=== PATIENT | female | born 1945 | race Caucasian/White ===

== ENCOUNTER → 2016-09-10 | Outpatient (CLI) | payer OTHER, MEDICARE ==
[~2016-09-10] MED LIST: ALREX10 ML OP; ASPIR 8181 MG PO; BUTALB-APAP-CA1 EACH PO; COMPRO25 MG RC; CYCLOBENZAPRINE5 MG PO; DILAUDID 2 MG TA2 MG PO; FAMCICLOVIR500 MG PO; HYDROCODONE-APA1 TA1 PO; INDAPAMIDE2.5 MG PO; MUPIROCIN15 GM TP; NORCO 5-325 TA1 EACH PO; NORTRIPTYLINE H10 M1 PO; NORVASC5 MG PO; PRILOSEC20 MG PO; PROTONIX40 M1 PO; RESTORIL30 MG PO; ROBAXIN 750 MG750 M1 PO; SENOKOT-S1 TA1 PO; TRAMADOL 50 MG50 MG PO; TRIGLIDE160 M1 PO; TYLENOL325 MG PO; XANAX1 MG PO; ZOCOR40 MG PO
== END ==
LOC: NUC 09-04 08:08
DX: G90.511 Complex regional pain syndrome I of right upper limb (principal); R60.9 Edema, unspecified; M25.531 Pain in right wrist; W19.XXXA Unspecified fall, initial encounter; Y93.89 Activity, other specified; Y92.89 Other specified places as the place of occurrence of the external cause; Y99.8 Other external cause status

== ENCOUNTER 2017-07-01 06:38 | Inpatient (IN) | payer OTHER, MEDICARE ==
[~2017-07-01] VITALS: Ht 165.1 cm; Wt 53.4 kg
--- NOTE | ~2017-07-01 | HC ---
[facility] [place] [address] CONSULTATION Name: SHAWN SHAFFER Room #: 214-P [facility] IN M.R.#: [id number] Admission: 07/01/17 Attend Phys: Efe Hoff DO Discharge: 07/15/17 Date of : 47 Report #: [id number] THIS REPORT FOR: //name// CC: Efe Clark DATE OF SERVICE: 07/12/2017 HISTORY OF PRESENT ILLNESS: This is a 72-year-old white female with history of ulcerative colitis, irritable bowel syndrome, admitted with nausea, vomiting, abdominal pain, and rectal bleeding. She had a colonoscopy, which showed severely ulcerated mucosa in left colon. She also had a mesenteric angiogram, which showed AQUILES dissection, but good flow. She has a left lower quadrant discomfort. Gastroenterology is following along with General Surgery from a conservative measure at this point. She has generalized weakness and debilitation and we are seeing her in rehabilitation medicine consultation. PAST MEDICAL HISTORY: Includes coronary artery disease, hypertension, bypass surgery in 1999, bilateral knee replacement, breast implants in the 1969's and 1997, lumbar spinal stenosis, degenerative arthritis, chronic depression, irritable bowel syndrome, TMJ syndrome, GERD, and cervical spondylosis. MEDICATIONS: Please see the full medication listing. HABITS: No history of tobacco or alcohol abuse. ALLERGIES: PENICILLIN. SOCIAL HISTORY: House, spouse, second floor apartment, full flight of steps up. She did not utilize gait aids, although she did have a cane. apparently has dementia. REVIEW OF SYSTEMS: Did not offer any current complaints of chest pain or shortness of breath. She does have the left lower quadrant abdominal discomfort. PHYSICAL EXAMINATION: GENERAL: A 72-year-old slender white female in no obvious distress. VITAL SIGNS: Last recorded temperature 98.1, pulse 95, respirations 20, blood pressure 106/56. NEUROLOGIC: The patient is alert. She is a little verbose and rather tangential. Facies are symmetric. Well-healed incision over her anterior chest as well as bilateral knees. EXTREMITIES: Functional range of motion of the upper extremity, strength is grade 4-/5 and DTRs are trace to 1. She does have an indwelling Lundberg catheter. Lower extremities, no focal calf swelling, functional range of motion strength [address] [address] CONSULTATION Name: SHAWN SHAFFER Room #: 214-P [facility] IN .R.#: [id number] Admission: 07/01/17 Attend Phys: Efe Hoff DO Discharge: 07/15/17 Date of : 47 Report #: [id number] is a grade 4 to 4-/5 and DTRs are trace to 1. Sit to stand is contact guard, gait 112 feet contact guard with a front-wheeled walker. She does have a lot of steps as noted above. I do not see that she has attempted steps yet. She does have limited tolerance for ambulation. ASSESSMENT: A 72-year-old white female with the following problems: 1. Medical complexity with generalized debilitation. 2. Colitis/gastroenteritis. 3. Irritable bowel syndrome with ulcerative colitis. 4. Severe ulcerated mucosa noted at the left colon per colonoscopy. 5. 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 6. Coronary artery disease. 7. Asthma. 8. Depression and anxiety. 9. Gastroesophageal reflux disease. PLAN: We are assessing the patient for a short acute in-hospital inpatient rehabilitation stay. At this point, we will be follow along with you. <ELECTRONICALLY SIGNED> By: Cory Simental MD 07/16/17 1108 [id number] Cory Simental MD /PMT
--- NOTE | ~2017-07-01 | P ---
[facility] [place] [address] PROCEDURE REPORT Name: SHAWN SHAFFER Room #: 214-P ADM IN M.R.#: [id number] Admission: 07/01/17 Attend Phys: Efe Hoff DO Discharge: Date of : 47 Report #: [id number] THIS REPORT FOR: //name// CC: Efe Hoff DO Boone Clark MD DATE OF SERVICE: 07/07/2017 PROCEDURE: Colonoscopy with biopsies. PATIENT OF: Dr. Efe Hoff and Dr. Boone Clark. INDICATION FOR PROCEDURE: The patient has a history of abdominal pain, fever, and elevated white count. 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 This was minor apparently and should heal on its own. The patient nonetheless has had ongoing abdominal pain, fever and high white count since a week ago when I first saw her and is feeling poorly despite being on the antibiotics and appropriate medical treatment. Colonoscopy is being performed today to evaluate for the etiology of all of these symptoms. Informed consent for this procedure was obtained prior to the administration of any medication. The risks of the procedure, which include bleeding, perforation, infection, complications of sedation and the possibility I could miss something have been explained to the patient. She has indicated her consent by signing. Digital rectal exam was done and no abnormalities were palpated. Then, the Fujinon colonoscope was introduced through the anal sphincter and advanced under direct visualization to the terminal ileum. Findings are noted on withdrawal of the scope. In the terminal ileum, mucosa appears normal. Biopsies were obtained times 2 for histopathology to exclude microscopic Crohn's disease. In the cecum, there was a single 3-mm polyp removed in toto with regular biopsy forceps and sent to pathology lab. Good hemostasis noted after that polypectomy. The remaining cecal mucosa appears normal. Ascending colon, normal mucosa. Hepatic flexure, normal mucosa. Transverse colon, normal mucosa. Splenic flexure, at 60 cm at the splenic flexure, there is the beginning of what appears to be a severely ulcerated and edematous mucosa, this extends from [address] down to 30 cm in the sigmoid colon. Biopsies were obtained from the splenic flexure times 2, descending colon times 2 and sigmoid colon times 4 of these ulcerated areas. I did also biopsy an area of colitis at 20 cm times 2 for histopathology. Good hemostasis was noted after all of those biopsies. In the rectum, there were two small polyps, 3 mm in [address] [address] PROCEDURE REPORT Name: SHAWN SHAFFER Room #: 214-P [facility] IN M.R.#: [id number] Admission: 07/01/17 Attend Phys: Efe Hoff DO Discharge: Date of : 47 Report #: [id number] size, removed in toto with regular biopsy forceps and sent to pathology lab. Good hemostasis was noted after all biopsies. Retroflex view in the rectum did not reveal any abnormalities. Scope was slowly withdrawn through the anal canal. No other abnormalities were seen. Scope was withdrawn. The patient went to the recovery area in stable condition. She tolerated the procedure well. IMPRESSION: 1. Colon polyps removed from the cecum and the rectum as above. 2. She does have an uncomplicated sigmoid diverticulum. 3. Severely ulcerated mucosa extending from 60 to 30 cm in the left colon. This is most consistent with ischemic colitis by its appearance; however, Crohn's disease is also in the differential diagnosis, it does not look like typical ulcerative colitis. RECOMMENDATION: My recommendations are to await the biopsy results. We will continue the antibiotics at this time. I do not think this patient should be discharged until further workup is obtained, I think she may need to have either a stent in her inferior mesenteric artery for what is probably colonic ischemia or she will need a left hemicolectomy unless this is Crohn's disease, in which case it will be treated medically. Thank you very much once again for allowing me to participate in her care, Dr. Hoff and Dr. Clark. <ELECTRONICALLY SIGNED> By: Xochitl Lombardo DO 07/07/17 [id number] Xochitl Lombardo DO /nt
--- NOTE | ~2017-07-01 | S ---
[facility] [place] [address] SURGICAL PATH RPT PROCEDURE Name: AILEEN SHAFFER Room #: 214-P ADM IN M.R.#: [id number] Admission: 07/01/17 Date of : 47 Discharge: Report #: [id number] Path Case #: [id number] PATHOLOGY REPORT COLLECTION DATE: 07/07/2017 RECEIVED DATE: 07/09/2017 SUBMITTING PHYS: Dr. Xochitl Lombardo OTHER PHYS: Dr. Efe Clark SPECIMEN(S) RECEIVED: A.Terminal ileum biopsy B.Cecal polyp C.Spleenic flexure bx D.Descending colon E.Sigmoid colon F.20 cm biopsies colon G.Polyp rectum x2 * * * * * * * * * * * * FINAL DIAGNOSIS: A. Small bowel mucosa, terminal ileum, R/O microscopic inflammation/Crohn's, endoscopic biopsy: - Negative for active inflammation. - Negative for dysplasia or malignancy. B. Polyp, cecal polyp, endoscopic biopsy: - Tubular adenoma admixed with hyperplastic changes. - Negative for high grade dysplasia. C. Large intestinal mucosa, splenic flexure ulceration: - Compatible with ischemic colitis associated with marked ulceration. - Negative for dysplasia or malignancy. D. Large intestine, descending colon, endoscopic biopsy: - Compatible with ischemic colitis associated with marked ulceration. - Negative for dysplasia or malignancy. E. Large intestinal mucosa, sigmoid colon, endoscopic biopsy: - Moderate active colitis with fibrotic lamina propria compatible with early ischemic changes (please see comment). - Negative for dysplasia or malignancy. F. Large intestine, 20 cm, endoscopic biopsy: - Mild active colitis. - Negative for dysplasia or malignancy. G. Polyp, rectum, endoscopic biopsy: - Hyperplastic polyp. - Negative for dysplasia. COMMENT: Examination of the "splenic flexure ulcerations, descending colon [facility] [address] [place] [address] SURGICAL PATH RPT PROCEDURE Name: AILEEN SHAFFER Room #: 214-P ADM IN M.R.#: [id number] Admission: 07/01/17 Date of : 47 Discharge: Report #: [id number] Path Case #: [id number] ulceration, and sigmoid colon ulcerations" biopsy tissues show fibrotic lamina propria with the ghosts of the crypts along with a regenerative surface epithelial atypia where intact. Fibrinopurulent material consistent with ulceration is present. There are no viral inclusions, parasitic inclusions, or granulomata identified. Fibrin plugs within lamina propria vessels are not evident. The differential diagnosis includes acute diverticulitis; however, the morphological features are highly compatible with ischemic colitis.. Clinical correlation is suggested. (IUV:db; 07/12/2017) PATHOLOGIST: Jenny Gonzalez M.D. REPORT ELECTRONICALLY SIGNED BY: Jenny Gonzalez M.D. DATE/TIME: 07/12/2017 14:36 * * * * * * * * * * * * GROSS PATHOLOGY: A. Received in formalin labeled "Aileen Shaffer, terminal ileum R/O microscopic inflammation/Crohn's," is a segment of nieves soft tissue measuring 0.4 cm in maximum dimension. The specimen is submitted entirely in cassette A1. B. Received in formalin labeled "Aileen Annette, cecal polyp," are two segments of nieves soft tissue measuring 0.5 x 0.3 x 0.2 cm in aggregate dimensions and ranging from 0.2 to 0.3 cm in maximum dimension. The specimen is submitted entirely in cassette B1. C. Received in formalin labeled "Aileen Annette, splenic flexure ulceration biopsies," and additionally labeled on the requisition as, "splenic flexure biopsy ulcerations," are four segments of nieves soft tissue measuring 0.5 x 0.4 x 0.2 cm in aggregate dimensions and ranging from 0.2 to 0.5 cm in maximum dimension. The specimen is submitted entirely in cassette C1. D. Received in formalin labeled "Aileen Annette, descending colon ulceration biopsies," and additionally labeled on the requisition as, "descending colon ulcerations biopsies," are three segments of nieves soft tissue measuring 0.7 x 0.3 x 0.2 cm in aggregate dimensions and ranging from 0.2 to 0.3 cm in maximum dimension. The specimen is submitted entirely in cassette D1. E. Received in formalin labeled "Aileen Annette, sigmoid colon ulcerations," is a segment of nieves soft tissue measuring 0.5 cm in maximum dimension. The specimen is submitted entirely in cassette E1. F. Received in formalin labeled "Aileen Annette, colon 20 cm biopsies," are two segments of nieves soft tissue measuring 0.4 x 0.4 x 0.2 cm in aggregate dimensions and ranging from 0.3-0.4 cm in maximum dimension. The specimen is submitted entirely in cassette F1. G. Received in formalin labeled "Aileen Annette, polyp rectum," and additionally labeled on the requisition as, "polyp rectum 2," are two segments of nieves soft tissue measuring 0.6 x 0.2 x 0.2 cm in [facility] [address] [place] [address] SURGICAL PATH RPT PROCEDURE Name: AILEEN SHAFFER Room #: 214-P ADM IN M.R.#: [id number] Admission: 07/01/17 Date of : 47 Discharge: Report #: [id number] Path Case #: [id number] aggregate dimensions and ranging from 0.2 to 0.3 cm in maximum dimension. The specimen is submitted entirely in cassette G1. ([facility] [place] 07/09/2017[place] CLINICAL HISTORY: Pre-op diagnosis: Abdominal pain, hematochezia Post-op diagnosis: Ulcerative mucosa 30-60 cm, polyp, diverticulosis INITIAL CPT CODE(S): A; 10169 B; 89287 C; 89805 D; 58701 E; 64352 F; 00147 G; 77197 Professional services performed by [facility] at [place] [address], [place] [address] Technical services performed by [facility] at [address] [place] [address], [address], [place] [address]. [facility] [address] [place] [address] PHONE: [phone] DIRECTOR: Warren Moreno M.D. * * * END OF REPORT * * *
--- NOTE | ~2017-07-01 | HC ---
[facility] [place] [address] CONSULTATION Name: SHAWN SHAFFER Room #: 214-P ADM IN M.R.#: [id number] Admission: 07/01/17 Attend Phys: Efe Hoff DO Discharge: Date of : 47 Report #: [id number] THIS REPORT FOR: //name// CC: ADONAY Clark DATE OF SERVICE: 07/08/2017 REASON FOR CONSULTATION: Abdominal pain, colitis. HISTORY OF PRESENT ILLNESS: This is a 72-year-old female patient with a history of ulcerative colitis, irritable bowel syndrome, coronary artery disease, hypertension, hyperlipidemia and chronic pain who was seen in the [facility] with nausea, vomiting, abdominal pain with cramping, diarrhea and rectal bleeding on 07/01/2017. She was hypothermic with a temperature of 98.1 degrees Fahrenheit. She was externally warmed and has had improvement. She underwent mesenteric angiogram on 07/01/2017 which showed the celiac trunk, SMA, and AQUILES to be normal. An AQUILES dissection was seen. This did not appear to cause significant symptoms. CT of the abdomen and pelvis showed findings suggestive of diffuse colitis involving the transverse, descending, and rectosigmoid colon and possible gastroenteritis. The patient has had no significant improvement since her admission 1 week ago. I have been asked to see the patient for further evaluation and treatment. Her lactate levels were elevated one week ago, with her most recent result being 2.4, down from 3.8 several hours earlier. PAST MEDICAL AND SURGICAL HISTORY: Significant for bilateral total knee arthroplasty, asthma, migraine headaches, cervical spondylosis, right axillary squamous cell carcinoma, coronary artery disease, hypertension, lumbar spine stenosis, degenerative joint disease, anxiety, depression, carpal tunnel syndrome, TMJ, irritable bowel syndrome, gastroesophageal reflux disease, hypercholesterolemia, asthma, previous bypass surgery, bilateral breast implants. HOME MEDICATIONS: Includes Flexeril, Restoril, Zocor, Xanax, nortriptyline, Fioricet, [place], Norvasc, aspirin, and indapamide. Please see the hospital chart for dosing details. ALLERGIES: PENICILLIN. FAMILY HISTORY: Reviewed and noncontributory to this hospitalization. SOCIAL HISTORY: The patient denies use of tobacco or alcohol. REVIEW OF SYSTEMS: As per history of present illness. In addition: GENERAL: The patient denies unintentional inserted. The patient reports no [address] [address] CONSULTATION Name: SHAWN SHAFFER Room #: 214-P [facility] IN M.R.#: [id number] Admission: 07/01/17 Attend Phys: Efe Hoff DO Discharge: Date of : 47 Report #: [id number] significant weight change. Denies fever or chills. HEENT: Denies changes in taste, vision, hearing, or smell. RESPIRATORY: Denies worsening shortness of breath or COPD, has a history of asthma. CARDIOVASCULAR: Denies chest pain or palpitations. GASTROINTESTINAL: As per history of present illness. She underwent a colonoscopy yesterday, which showed severely ulcerated mucosa consistent with ischemic colitis rather than a typical ulcerative colitis, possibly Crohn's disease. She also had colonic polyps at the cecum rectum and uncomplicated sigmoid diverticulosis. GENITOURINARY: Denies dysuria, urgency or increased urinary frequency, hematuria. NEUROLOGIC: Denies numbness or tingling, has a history of migraine headaches and chronic pain. MUSCULOSKELETAL: Denies myalgia, has joint pain. PSYCHIATRIC: Denies suicidal ideations. Has depression and anxiety. SKIN AND INTEGUMENTARY: Denies new skin lesions, rashes, or moles; has a history of squamous cell carcinoma, squamous cell carcinoma. ENDOCRINE: Denies polydipsia, polyuria, heat or cold intolerance. HEMATOLOGIC: Denies easy bleeding, bruising or anemia. All other review of systems is negative. PHYSICAL EXAMINATION: VITAL SIGNS: Temperature 97.7, blood pressure 127/75, pulse 86, respirations 18. GENERAL: This is a 72-year-old thin female patient, in no acute distress. She is anxious. HEENT: Atraumatic, normocephalic with moist mucosal membranes. NECK: Supple, no appreciable lymphadenopathy. Trachea is midline. CHEST: Clear bilaterally. CARDIOVASCULAR: Regular rate and rhythm, S1, S2. ABDOMEN: Soft, but tender to palpation, greatest in the left lower quadrant. She has no rebound or guarding. No palpable masses, no appreciable hernias. GENITOURINARY: Normal external female genitalia. EXTREMITIES: No clubbing or cyanosis. NEUROLOGIC: Cranial nerves 2-12 grossly intact. PSYCHIATRIC: Anxious. SKIN: No acute inflammatory changes, rashes or lesions are present. LABORATORY DATA: Most recent CBC is from 07/06/2017 which showed a white blood cell count 11.5, hemoglobin 10.7, hematocrit 32.1 and platelets 211 with 78% segmented neutrophils. TSH was elevated at 8.7. BMP showed a sodium of 139, potassium 3.3, chloride 105, CO2 30, BUN 6, creatinine 0.6 and glucose 100 on 07/06/2017. Her white count was as high as 25.5 on 07/02/2017. Lactic acid was 2.4 on 07/01/2017; a few hours earlier, it was 3.8. [address] [place] [address] CONSULTATION Name: SHAWN SHAFFER Room #: 214-P [facility] IN M.R.#: [id number] Admission: 07/01/17 Attend Phys: Efe Hoff DO Discharge: Date of : 47 Report #: [id number] RADIOLOGIC STUDIES: CT angiography and angiography results are as noted above. IMPRESSION AND PLAN: This is a 72-year-old female patient who has colitis, possibly ischemic versus infectious. Her workup has been otherwise negative so far (mesenteric angiogram showed AQUILES dissection; however, a good flow was present; labs have shown no evidence for Clostridium difficile colitis, cryptosporidium or Giardia). Her CT was positive showing a diffusely thickened colon. Her colonoscopy yesterday showed polyps with biopsies currently pending. My recommendation is to repeat her CT and draw a lactic acid level to document any change and look for improvement. At this point in time, the patient does not have evidence for peritonitis. I discussed the pathophysiology and natural history of colitis with the patient. I will follow along with serial abdominal exams as well as labs and x-rays as necessary. I sincerely appreciate the opportunity to participate in this patient's care and will leave further recommendations and orders in the electronic medical record as appropriate. <ELECTRONICALLY SIGNED> By: Marcio Gomez MD, FACS 07/09/17 [phone] 1029 Marcio Gomez MD, FACS /nt
--- NOTE | ~2017-07-01 | EKG ---
[place] [address] [facility] [place] [address] ELECTROCARDIOGRAM REPORT Name: SHAWN SHAFFER Room #: 203-P ADM IN M.R.#: [id number] Admission: 07/01/17 Attend Phys: Efe Hoff DO Discharge: Date of : 47 Report #: [id number] THIS REPORT FOR: //name// 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: [place] : 1945 Requested By: Zackary Crooks Order Number: [id number] MD: Ata Dumont Measurements Intervals [place] Rate: 81 P: 82 [place]: 155 QRS: 87 QRSD: 100 T: 73 QT: 422 QTc: 490 Interpretive Statements Sinus rhythm Borderline right axis deviation Nonspecific T abnrm, Borderline prolonged QT interval Compared to ECG 06/12/2015 17:23:15 No significant changes Electronically Signed On 07-01-2017 16:59:41 [employer] 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
[2017-07-01 06:47] VITALS: BP 126/70
[2017-07-01 07:19] LABS: HEMATOCRIT 45.9 % (37.0-47.0); MCH 29.9 pg (26.0-34.0); MCHC 32.7 g/dL (28.0-37.0); MCV 91.4 fL (80.0-100.0); PLATELET COUNT 292 thou/uL (150-400); RBC 5.02 mil/uL (4.20-5.00); RDW 13.7 % (10.5-14.5); WBC 21.9 thou/uL (4.0-11.0)
[2017-07-01 07:22] LABS: MANUAL DIFF YES
[2017-07-01 07:33] LABS: CALCIUM 9.3 mg/dL (8.5-10.1); CREATININE 0.9 mg/dL (0.6-1.0); POTASSIUM 3.6 mmol/L (3.5-5.1)
[2017-07-01 07:35] LABS: APTT 24.7 Seconds (24.5-32.8); PROTIME 10.7 Seconds (9.3-11.4)
[2017-07-01 07:37] LABS: URINE BLOOD NEGATIVE (Negative); URINE GLUCOSE-RANDOM* NEGATIVE (Negative); URINE KETONES 1+ (Negative); URINE LEUKOCYTES-REFLEX NEGATIVE (Negative); URINE PROTEIN (DIPSTICK) TRACE (Negative); URINE SPECIFIC GRAVITY 1.025 (1.003-1.035)
[2017-07-01 07:38] LABS: ALBUMIN 3.7 g/dL (3.4-5.0); TOTAL BILIRUBIN 0.5 mg/dL (<0.1-1.0); TOTAL PROTEIN 6.8 g/dL (6.4-8.2)
[2017-07-01 08:04] LABS: URINE COLOR AMBER
[2017-07-01 08:17] LABS: HYALINE CASTS 4-10 Moderate /LPF (None Seen); SQUAMOUS >10 Many /LPF (0-3)
[2017-07-01 08:18] LABS: CRYSTALS None Seen /LPF (None Seen); URINE RBC None Seen /HPF (0-2); URINE WBC-REFLEX 0-5 Rare /HPF (0-5)
[2017-07-01 08:19] LABS: ICTOTEST (BILI CONFIRMATORY) Negative (Negative); URINE BILIRUBIN NEGATIVE (Negative)
[2017-07-01 08:47] LABS: ABSOLUTE NEUTROPHILS 20.8 thou/uL (1.4-8.2); ANISOCYTOSIS SLIGHT; TOTAL CELL COUNT 100
[2017-07-01 11:11] VITALS: BP 130/76
[2017-07-01 11:27] VITALS: BP 130/76
[2017-07-01 12:00] VITALS: BP 154/86
[2017-07-01 14:48] VITALS: BP 154/86
[2017-07-01 19:45] VITALS: BP 148/89
[2017-07-02 00:35] VITALS: BP 146/72
[2017-07-02 04:30] VITALS: BP 122/65
[2017-07-02 04:36] LABS: HEMATOCRIT 32.1 % (37.0-47.0); MANUAL DIFF YES; MCH 30.5 pg (26.0-34.0); MCHC 33.8 g/dL (28.0-37.0); MCV 90.1 fL (80.0-100.0); RBC 3.56 mil/uL (4.20-5.00); RDW 13.5 % (10.5-14.5); WBC 25.5 thou/uL (4.0-11.0)
[2017-07-02 04:39] LABS: HEMOGLOBIN 10.8 gm/dL (12.0-15.0); PLATELET COUNT 181 thou/uL (150-400)
[2017-07-02 04:45] LABS: CREATININE 0.7 mg/dL (0.6-1.0); MAGNESIUM 1.3 mg/dL (1.8-2.4)
[2017-07-02 04:53] LABS: POTASSIUM 2.7 mmol/L (3.5-5.1)
[2017-07-02 04:54] LABS: CALCIUM 6.7 mg/dL (8.5-10.1)
[2017-07-02 05:31] LABS: ABSOLUTE NEUTROPHILS 22.4 thou/uL (1.4-8.2); PLATELET ESTIMATE NORMAL; TOTAL CELL COUNT 100
[2017-07-02 07:04] VITALS: BP 125/60
[2017-07-02 11:25] VITALS: BP 116/56
[2017-07-02 13:32] LABS: MAGNESIUM 1.5 mg/dL (1.8-2.4); POTASSIUM 3.2 mmol/L (3.5-5.1)
[2017-07-02 16:22] VITALS: BP 130/71
[2017-07-02 20:30] VITALS: BP 157/75
[2017-07-02 23:20] LABS: HEMATOCRIT 30.1 % (37.0-47.0); HEMOGLOBIN 10.2 gm/dL (12.0-15.0); MCH 30.6 pg (26.0-34.0); MCHC 33.7 g/dL (28.0-37.0); MCV 90.7 fL (80.0-100.0); RBC 3.32 mil/uL (4.20-5.00); RDW 13.5 % (10.5-14.5); WBC 25.5 thou/uL (4.0-11.0)
[2017-07-02 23:47] LABS: MAGNESIUM 1.6 mg/dL (1.8-2.4); POTASSIUM 3.4 mmol/L (3.5-5.1)
[2017-07-03 04:30] VITALS: BP 134/73
[2017-07-03 07:41] VITALS: BP 141/71
[2017-07-03 08:55] LABS: HEMATOCRIT 32.5 % (37.0-47.0); HEMOGLOBIN 10.7 gm/dL (12.0-15.0); MCH 29.7 pg (26.0-34.0); MCHC 32.8 g/dL (28.0-37.0); MCV 90.8 fL (80.0-100.0); RBC 3.58 mil/uL (4.20-5.00); RDW 13.4 % (10.5-14.5); WBC 22.9 thou/uL (4.0-11.0)
[2017-07-03 11:35] VITALS: BP 128/66
[2017-07-03 16:59] VITALS: BP 149/77
[2017-07-03 20:40] VITALS: BP 142/76
[2017-07-04 04:45] VITALS: BP 141/80
[2017-07-04 05:42] LABS: HEMATOCRIT 31.3 % (37.0-47.0); HEMOGLOBIN 10.4 gm/dL (12.0-15.0); MCH 29.8 pg (26.0-34.0); MCHC 33.1 g/dL (28.0-37.0); PLATELET COUNT 161 thou/uL (150-400); RBC 3.48 mil/uL (4.20-5.00); RDW 13.1 % (10.5-14.5); WBC 19.5 thou/uL (4.0-11.0)
[2017-07-04 05:44] LABS: MANUAL DIFF YES
[2017-07-04 06:04] LABS: CALCIUM 7.8 mg/dL (8.5-10.1); CREATININE 0.6 mg/dL (0.6-1.0); POTASSIUM 3.3 mmol/L (3.5-5.1)
[2017-07-04 08:29] VITALS: BP 138/77
[2017-07-04 10:35] LABS: ABSOLUTE NEUTROPHILS 17.4 thou/uL (1.4-8.2); TOTAL CELL COUNT 100
[2017-07-04 10:36] LABS: ANISOCYTOSIS SLIGHT
[2017-07-04 12:52] VITALS: BP 127/77
[2017-07-04 18:01] VITALS: BP 143/90
[2017-07-04 19:56] VITALS: BP 148/86
[2017-07-04 23:34] VITALS: BP 151/97
[2017-07-05 03:30] VITALS: BP 150/78
[2017-07-05 04:08] LABS: CREATININE 0.6 mg/dL (0.6-1.0); POTASSIUM 3.4 mmol/L (3.5-5.1)
[2017-07-05 04:23] LABS: HEMATOCRIT 28.2 % (37.0-47.0); HEMOGLOBIN 9.3 gm/dL (12.0-15.0); PLATELET COUNT 170 thou/uL (150-400); RBC 3.09 mil/uL (4.20-5.00); RDW 13.2 % (10.5-14.5)
[2017-07-05 04:38] LABS: MANUAL DIFF YES
[2017-07-05 05:40] LABS: ABSOLUTE NEUTROPHILS 12.1 thou/uL (1.4-8.2); TOTAL CELL COUNT 100
[2017-07-05 07:17] VITALS: BP 138/71
[2017-07-05 11:50] VITALS: BP 133/88
[2017-07-05 15:19] VITALS: BP 127/72
[2017-07-05 19:16] VITALS: BP 151/90
[2017-07-06 04:01] LABS: HEMATOCRIT 32.1 % (37.0-47.0); HEMOGLOBIN 10.7 gm/dL (12.0-15.0); MCH 29.9 pg (26.0-34.0); MCHC 33.4 g/dL (28.0-37.0); MCV 89.6 fL (80.0-100.0); PLATELET COUNT 211 thou/uL (150-400); RBC 3.58 mil/uL (4.20-5.00); RDW 13.2 % (10.5-14.5); WBC 11.5 thou/uL (4.0-11.0)
[2017-07-06 04:02] LABS: MANUAL DIFF YES
[2017-07-06 04:06] LABS: CALCIUM 7.9 mg/dL (8.5-10.1); CREATININE 0.6 mg/dL (0.6-1.0); POTASSIUM 3.3 mmol/L (3.5-5.1)
[2017-07-06 04:42] LABS: ABSOLUTE NEUTROPHILS 9.4 thou/uL (1.4-8.2); TOTAL CELL COUNT 100
[2017-07-06 05:09] VITALS: BP 116/61
[2017-07-06 07:10] VITALS: BP 112/57
[2017-07-06 11:18] VITALS: BP 144/91
[2017-07-06 15:12] VITALS: BP 123/69
[2017-07-06 19:46] VITALS: BP 154/85
[2017-07-07 04:10] VITALS: BP 150/84
[2017-07-07 07:13] VITALS: BP 131/78
[2017-07-07 11:14] VITALS: BP 124/69
[2017-07-07 13:46] VITALS: BP 124/69
[2017-07-07 15:27] VITALS: BP 126/76
[2017-07-07 19:27] VITALS: BP 117/74
[2017-07-08 04:14] VITALS: BP 132/69
[2017-07-08 07:28] VITALS: BP 127/75
[2017-07-08 11:11] VITALS: BP 122/69
[2017-07-08 15:07] VITALS: BP 134/84
[2017-07-08 19:16] VITALS: BP 148/85
[2017-07-09 04:21] VITALS: BP 144/66
[2017-07-09 07:24] VITALS: BP 106/69
[2017-07-09 11:32] VITALS: BP 116/71
[2017-07-09 12:31] LABS: HEMATOCRIT 34.3 % (37.0-47.0); HEMOGLOBIN 11.5 gm/dL (12.0-15.0); MCH 29.8 pg (26.0-34.0); MCHC 33.5 g/dL (28.0-37.0); MCV 89.1 fL (80.0-100.0); PLATELET COUNT 372 thou/uL (150-400); RBC 3.85 mil/uL (4.20-5.00); RDW 13.4 % (10.5-14.5); WBC 17.2 thou/uL (4.0-11.0)
[2017-07-09 12:32] LABS: MANUAL DIFF YES
[2017-07-09 12:41] LABS: ALBUMIN 2.7 g/dL (3.4-5.0); CALCIUM 8.6 mg/dL (8.5-10.1); CREATININE 0.7 mg/dL (0.6-1.0); PHOSPHORUS 2.7 mg/dL (2.5-4.9); POTASSIUM 3.2 mmol/L (3.5-5.1)
[2017-07-09 12:59] LABS: ABSOLUTE NEUTROPHILS 14.8 thou/uL (1.4-8.2); PLATELET ESTIMATE NORMAL; TOTAL CELL COUNT 100
[2017-07-09 15:15] VITALS: BP 99/66
[2017-07-09 19:27] VITALS: BP 113/78
[2017-07-10 03:52] VITALS: BP 119/76
[2017-07-10 07:25] VITALS: BP 129/62
[2017-07-10 12:55] VITALS: BP 106/55
[2017-07-10 16:30] VITALS: BP 1058/65
[2017-07-10 19:12] VITALS: BP 103/58
[2017-07-11 04:06] VITALS: BP 99/62
[2017-07-11 09:00] VITALS: BP 134/38
[2017-07-11 12:00] VITALS: BP 132/82
[2017-07-11 16:00] VITALS: BP 115/68
[2017-07-11 19:30] VITALS: BP 118/72
[2017-07-12] VITALS (7 sets, daily range): BP systolic 105–137; BP diastolic 56–81
[2017-07-13 03:58] VITALS: BP 102/57
[2017-07-13 04:15] VITALS: BP 102/53; BP 102/57
[2017-07-13 07:50] VITALS: BP 86/53
[2017-07-13 12:00] VITALS: BP 92/54
[2017-07-13 15:48] LABS: HEMATOCRIT 32.2 % (37.0-47.0); HEMOGLOBIN 10.7 gm/dL (12.0-15.0); MCH 29.8 pg (26.0-34.0); MCHC 33.1 g/dL (28.0-37.0); MCV 90.1 fL (80.0-100.0); RBC 3.58 mil/uL (4.20-5.00); RDW 13.6 % (10.5-14.5); WBC 10.6 thou/uL (4.0-11.0)
[2017-07-13 15:57] LABS: CALCIUM 8.2 mg/dL (8.5-10.1); CREATININE 0.7 mg/dL (0.6-1.0); POTASSIUM 3.4 mmol/L (3.5-5.1)
[2017-07-13 16:50] VITALS: BP 116/64
[2017-07-13 19:36] VITALS: BP 110/67
[2017-07-14 03:21] VITALS: BP 84/49
[2017-07-14 08:03] VITALS: BP 92/56
[2017-07-14 11:03] VITALS: BP 103/66
[2017-07-14 15:23] VITALS: BP 98/66
[2017-07-14 20:15] VITALS: BP 117/60
[2017-07-15 05:27] LABS: ALBUMIN 2.3 g/dL (3.4-5.0); CALCIUM 8.2 mg/dL (8.5-10.1); CREATININE 0.7 mg/dL (0.6-1.0); PHOSPHORUS 3.1 mg/dL (2.5-4.9); POTASSIUM 3.4 mmol/L (3.5-5.1)
[2017-07-15 08:06] VITALS: BP 88/55
[2017-07-15 11:54] VITALS: BP 104/56
[2017-07-15 14:27] VITALS: BP 124/69
[2017-07-15 14:28] VITALS: BP 124/69
[2017-07-15 14:51] VITALS: BP 129/73
[2017-07-15 15:16] VITALS: BP 124/69
== END 2017-07-15 15:50 | disposition home health service (06) | DRG 871 ==
LOC: ER 06:38 → 2N 08:01 → EROBS 08:01 → 2N 11:45 → ENTRNSPT 07-15 15:36 → EDTRNSPTSTS 07-15 15:41 → 2N 07-15 15:50
PROVIDERS: Emergency Medicine; Family Medicine; Hospitalist; Nurse Practitioner; Surgery
PROC: B410ZZZ Fluoroscopy of Abdominal Aorta (ICD-10-PCS; principal; 2017-07-01)
PROC: B415ZZZ Fluoroscopy of Inferior Mesenteric Artery (ICD-10-PCS; principal; 2017-07-01)
PROC: 05HC33Z Insertion of Infusion Device into Left Basilic Vein, Percutaneous Approach (ICD-10-PCS; 2017-07-01)
PROC: B54NZZA Ultrasonography of Left Upper Extremity Veins, Guidance (ICD-10-PCS; 2017-07-01)
PROC: 0DBH8ZX Excision of Cecum, Via Natural or Artificial Opening Endoscopic, Diagnostic (ICD-10-PCS; 2017-07-07)
PROC: 0DBB8ZX Excision of Ileum, Via Natural or Artificial Opening Endoscopic, Diagnostic (ICD-10-PCS; 2017-07-07)
PROC: 0DBN8ZX Excision of Sigmoid Colon, Via Natural or Artificial Opening Endoscopic, Diagnostic (ICD-10-PCS; 2017-07-07)
PROC: 0DBM8ZX Excision of Descending Colon, Via Natural or Artificial Opening Endoscopic, Diagnostic (ICD-10-PCS; 2017-07-07)
PROC: 0DBP8ZX Excision of Rectum, Via Natural or Artificial Opening Endoscopic, Diagnostic (ICD-10-PCS; 2017-07-07)
DX: A41.9 Sepsis, unspecified organism (principal); K65.9 Peritonitis, unspecified; I77.79 Dissection of other specified artery; K55.069 Acute infarction of intestine, part and extent unspecified; K92.2 Gastrointestinal hemorrhage, unspecified; K51.90 Ulcerative colitis, unspecified, without complications; N12 Tubulo-interstitial nephritis, not specified as acute or chronic; E44.0 Moderate protein-calorie malnutrition; Z68.1 Body mass index [BMI] 19.9 or less, adult; A09 Infectious gastroenteritis and colitis, unspecified; K55.9 Vascular disorder of intestine, unspecified; Z95.1 Presence of aortocoronary bypass graft; Z96.653 Presence of artificial knee joint, bilateral; G43.909 Migraine, unspecified, not intractable, without status migrainosus; I25.10 Atherosclerotic heart disease of native coronary artery without angina pectoris; I10 Essential (primary) hypertension; H91.90 Unspecified hearing loss, unspecified ear; E78.00 Pure hypercholesterolemia, unspecified; K21.9 Gastro-esophageal reflux disease without esophagitis; F32.9 Major depressive disorder, single episode, unspecified; M26.609 Unspecified temporomandibular joint disorder, unspecified side; F41.1 Generalized anxiety disorder; J45.909 Unspecified asthma, uncomplicated; T68.XXXA Hypothermia, initial encounter; G89.29 Other chronic pain; R53.81 Other malaise; K63.5 Polyp of colon; M48.00 Spinal stenosis, site unspecified; Z79.899 Other long term (current) drug therapy; Z88.0 Allergy status to penicillin; Z85.828 Personal history of other malignant neoplasm of skin
CPT/HCPCS: 10081; 27000; 62110; 62900; 70005

== ENCOUNTER → 2017-08-25 | Outpatient (CLI) | payer OTHER, MEDICARE ==
[~2017-08-25] MED LIST changes: +DEPO-ESTRAD5 MG/1 ML IM; +LIPITOR 20 MG T20 M1 PO; +LISINOPRIL20 MG PO; +MIRALAX17 GM PO; +PROTONIX 20 MG20 M1 PO
== END ==
LOC: GI 07-07 11:59 → RAD 13:49
DX: K59.00 Constipation, unspecified (principal); K56.699 Other intestinal obstruction unspecified as to partial versus complete obstruction

== ENCOUNTER → 2017-09-06 | Outpatient (CLI) | payer OTHER, MEDICARE ==
[2017-09-06 12:18] LABS: HEMATOCRIT 41.7 % (37.0-47.0); HEMOGLOBIN 14.1 gm/dL (12.0-15.0); MCH 29.5 pg (26.0-34.0); MCHC 33.8 g/dL (28.0-37.0); MCV 87.3 fL (80.0-100.0); RBC 4.78 mil/uL (4.20-5.00); RDW 14.4 % (10.5-14.5); WBC 10.1 thou/uL (4.0-11.0)
[2017-09-06 12:32] LABS: ALBUMIN 3.5 g/dL (3.4-5.0); CALCIUM 9.3 mg/dL (8.5-10.1); CREATININE 0.6 mg/dL (0.6-1.0); POTASSIUM 3.7 mmol/L (3.5-5.1); TOTAL BILIRUBIN 0.3 mg/dL (<0.1-1.0); TOTAL PROTEIN 6.6 g/dL (6.4-8.2)
== END ==
LOC: LABMALL 10:29 → CAT 15:53
PROVIDERS: Internal Medicine Gastroenterology
DX: K52.89 Other specified noninfective gastroenteritis and colitis (principal); I70.0 Atherosclerosis of aorta; K55.9 Vascular disorder of intestine, unspecified; K59.00 Constipation, unspecified

== ENCOUNTER 2018-05-20 15:49 | Emergency (ER) | payer OTHER, MEDICARE ==
[~2018-05-20] VITALS: Ht 157.5 cm; Wt 49.9 kg
== END 2018-05-20 17:57 | disposition home or self-care (01) ==
LOC: ER 15:49
DX: S90.822A Blister (nonthermal), left foot, initial encounter (principal); S80.12XD Contusion of left lower leg, subsequent encounter; G43.909 Migraine, unspecified, not intractable, without status migrainosus; I25.10 Atherosclerotic heart disease of native coronary artery without angina pectoris; I10 Essential (primary) hypertension; M48.061 Spinal stenosis, lumbar region without neurogenic claudication; F41.1 Generalized anxiety disorder; M47.812 Spondylosis without myelopathy or radiculopathy, cervical region; F32.9 Major depressive disorder, single episode, unspecified; K58.9 Irritable bowel syndrome, unspecified; E78.00 Pure hypercholesterolemia, unspecified; K21.9 Gastro-esophageal reflux disease without esophagitis; Z88.5 Allergy status to narcotic agent; Z88.0 Allergy status to penicillin; Z96.653 Presence of artificial knee joint, bilateral; Z85.828 Personal history of other malignant neoplasm of skin; X58.XXXD Exposure to other specified factors, subsequent encounter

== ENCOUNTER 2018-07-21 23:21 | Inpatient (IN) | payer OTHER, MEDICARE ==
[~2018-07-21] VITALS: Ht 165.1 cm; Wt 51.0 kg
--- NOTE | ~2018-07-21 | PATH ---
[facility] [place] [address] PATHOLOGY RPT PROCEDURE Name: AILEEN SHAFFER Room #: 222-P DIS IN M.R.#: [id number] Admission: 07/22/18 Date of : 47 Discharge: 07/27/18 Report #: [id number] Path Case #: [id number] [facility] Accession Number: [id number] . 01 Material submitted: . PART A: BX OF SIGMOID PART B: BX OF 30 CM . 01 Clinical history: . Colitis Rule out colitis A/B . 02 Diagnosis: A. Large intestinal mucosa, sigmoid ulcer to rule out colitis, endoscopic biopsy: - Fragments of ulcer along with fragments of mucosa showing mild active colitis. - Negative for thrombi within lamina propria vessels. - Negative for microscopic colitis. - Negative for dysplasia or malignancy. . B. Large intestinal mucosa, 30 cm ulcer to rule out colitis, endoscopic biopsy: - Ulceration along with fragments of large intestinal mucosa showing changes compatible with ischemic colitis. - Negative for microscopic colitis. - Negative for dysplasia or malignancy. . (IUV:veterinarian; 07/28/2018) MBR/07/28/2018 . 02 Comment: Examination shows fragments of ulcer sampled separately. Viral inclusions are not identified within these fragments. The fragments of large intestinal mucosa show fibrotic lamina propria along with mild active colitis. Fibrin thrombi are not identified within any of the lamina propria vessels. The 30 cm ulcer biopsy tissue (part B) shows remnants of crypts (ghosts) along with surface epithelium showing regenerative atypia. These changes are compatible with ischemic colitis. The differential diagnosis includes pseudomembranous colitis (medication induced colitis). Please correlate clinically. . (IUV:veterinarian; 07/28/2018) . 02 Electronically signed: . Jenny Gonzalez MD, Pathologist NPI- [id number] [place] [address] PATHOLOGY RPT PROCEDURE Name: AILEEN SHAFFER Room #: 222-P DIS IN .R.#: [id number] Admission: 07/22/18 Date of : 47 Discharge: 07/27/18 Report #: [id number] Path Case #: [id number] . 01 Gross description: . A. The specimen is received in formalin, labeled "Aileen Shaffer BX of sigmoid ulcer" and consists of multiple fragments of soft and friable nieves tissue measuring 0.8 x 0.5 x 0.2 cm in aggregate which are entirely submitted in A1. . B. The specimen is received in formalin, labeled "Aileen Shaffer, BX of 30 cm ulcer" and consists of 2 fragments of nieves-brown tissue measuring 0.3 x 0.3 x 0.2 cm and 0.4 x 0.3 x 0.2 cm. They are entirely submitted in B1. (SDY; 07/27/2018) SYU/SYU . 02 Pathologist provided ICD-10: K63.3, K52.9, K55.9 . 02 CPT . 184577, 144154 Specimen Comment: A courtesy copy of this report has been sent to Specimen Comment: [phone], , , . Specimen Comment: Report sent to ,DR DIEGO.DR EARL / DR ARAGON Specimen Comment: A duplicate report has been generated due to demographic updates. Performed at: 01 [facility] [address], [place] [id number] MD John Huntley MD Phone: [phone] Performed at: [address] [id number] MD Jenny Gonzalez MD Phone: [phone]
--- NOTE | ~2018-07-21 | P ---
[facility] [place] [address] [address] [place] [address] PROCEDURE REPORT Name: SHAWN SHAFFER Room #: 222-P [facility] IN M.R.#: [id number] Admission: 07/22/18 Attend Phys: Lorraine Ramires MD Discharge: 07/27/18 Date of : 47 Report #: [id number] THIS REPORT FOR: //name// CC: Alton Gomez MD DATE OF SERVICE: 07/26/2018 PROCEDURE PERFORMED: Flexible sigmoidoscopy with biopsies and tattoo. HISTORY OF PRESENT ILLNESS: The patient is a 73-year-old female with recurrent lower quadrant abdominal pain and bloody diarrhea. CT scan of the abdomen and pelvis on admission is showing diffuse colonic wall thickening suggestive of a diffuse colitis, possible wall thickening of the stomach was noted. Plan is for flexible sigmoidoscopy. The patient has had a previous history of documented biopsy proven ischemic colitis in June of last year. She then had repeat endoscopies, which were essentially negative, but also has a possible history of ulcerative colitis. She has been taking mesalamine on her own. DESCRIPTION OF PROCEDURE: The risks and benefits of the procedure were explained to the patient, those risks including but not limited to bleeding, perforation and the risk of sedation. She understood these risks and gave informed consent. Sedation was given using propofol per Anesthesia. Next, a digital rectal exam was initially performed, which was normal. Next, using a standard Olympus colonoscope, the scope was placed in the patient's anus and advanced under direct vision into the ascending colon, at which point, the cecum and ileocecal valve were noted and normal in appearance. The ascending colon was normal. The transverse colon was normal. At the splenic flexure, the previous proximal tattoo area was noted. There was no evidence of colitis or inflammation. The scope was slowly withdrawn and in the descending colon the second most distal tattoo was noted with no significant colitis in between those previous tattoos. However, just distal to the distal tattoo was a large ulceration consistent with likely ischemic colitis. No active bleeding. Multiple biopsies were obtained. The scope was then slowly withdrawn and another area of ulcerations were noted at 30 cm and another area at 20 cm. So there were a total of 3 areas of ulceration, 40, 30 and 20 cm in the descending and sigmoid colon. A tattoo was marked at 30, but also at 20 cm being the most distal portion of the inflammation. Multiple biopsies were obtained. No evidence of bleeding. Diverticulosis was also noted in this area, but no evidence of diverticulitis. The rectal mucosa was normal. The scope was then withdrawn and the procedure terminated. The patient tolerated the procedure well. [address] [address] PROCEDURE REPORT Name: SHAWN SHAFFER Room #: 222-P DIS IN M.R.#: [id number] Admission: 07/22/18 Attend Phys: Lorraine Ramires MD Discharge: 07/27/18 Date of : 47 Report #: [id number] IMPRESSION: 1. Three areas of ulceration at 40, 30 and 20 cm as described above consistent with likely ischemic colitis. Biopsies obtained. Tattoo was placed at 30 and at 20 cm. 2. Diverticulosis. RECOMMENDATIONS: 1. Await biopsy results. 2. If the patient has biopsy proven ischemic colitis, may need to consider repeat Interventional Radiology looking at her AQUILES; this was attempted last year but a dissection occurred, versus possible surgical options. Thank you for allowing me to participate in her care. <ELECTRONICALLY SIGNED> By: Jd Aguilera MD 07/29/18 1112 1253 1835 Jd Aguilera MD /nt
--- NOTE | ~2018-07-21 | HC ---
[facility] [place] [address] CONSULTATION Name: SHAWN SHAFFER Room #: 364-P ADM IN M.R.#: [id number] Admission: 07/22/18 Attend Phys: Lorraine Ramires MD Discharge: Date of : 47 Report #: [id number] THIS REPORT FOR: //name// CC: Alton Frank MD [facility] Boone Ramires DATE OF SERVICE: 07/22/2018 GASTROINTESTINAL CONSULTATION HISTORY OF PRESENT ILLNESS: The patient is a 73-year-old woman with a recurrent bout of rectal bleeding and abdominal pain. HISTORY OF PRESENT ILLNESS: The patient reports she initially had problems with "colitis "a number of years ago. She was evaluated at [facility] by Dr. Tejinder Hylton. I suspect that was at least 10 years or more. In summary, she tells me she is admitted to the hospital because she had rectal bleeding. She had a colonoscopy, was told she had colitis. She does not recall receiving any specific medications. She was well until 06/2017, when she was admitted with abdominal pain, nausea, vomiting and rectal bleeding. She underwent evaluation at that time, which included a colonoscopy, which revealed ulcerative changes in her colon. Dr. Lombardo noted that at 60 cm, there was severe ulceration, which extended down to 30 cm in the sigmoid colon. Distal to that, the mucosa was intact. Biopsies were suggestive of ischemia. She was seen by Dr. Alton Mahoney in followup. There are path reports in the system, but the endoscopy reports are not here at this time. It is noted she had a procedure done on 09/28/2017. Biopsies revealed patchy focal colitis and otherwise are unremarkable. She also had an upper endoscopy at that time and biopsies were negative for H. pylori and small bowel biopsies were negative. She does, however, have Stroud's esophagus and dysplasia was not reported. She has been treated with pantoprazole and balsalazide. She takes 2 balsalazide twice daily. She was well until last evening when she once again had the sudden onset of nausea and vomiting. She had vomited up food, which she had eaten, but she did not vomit any blood. She then developed severe left lower quadrant abdominal pain, went to the commode and passed bright red blood into the commode. She then presented to the Emergency Room at [facility]. Here at [facility], she had a CT scan of the abdomen and pelvis, which was [facility] [address] [place] [address] CONSULTATION Name: SHAWN SHAFFER Room #: 364-P [facility] IN [facility].#: [id number] Admission: 07/22/18 Attend Phys: Lorraine Ramires MD Discharge: Date of : 47 Report #: [id number] done with IV contrast. There was noted to be some diffuse colon wall thickening, more prominent left colon than the right colon. Inferior mesenteric artery was not seen. There is also possible wall thickening in the stomach involving the distal body and antrum. In addition, she did have a mesenteric arteriogram done a year ago on that admission. Apparently, she developed some dissection of the aorta and they could not place a stent in the inferior mesenteric artery. Today, she reports that the abdominal pain has improved. She is still having rectal bleeding, but it is improved. She had been seen by Dr. Gomez and a CTA has been ordered, but not yet completed. LABORATORY STUDIES: Include a white count of 22.8 last evening, 22.1 this morning; hemoglobin 16.7 initially and 13.1 on admission, platelet count of 220,000. Her MCV was normal. Electrolytes were normal, creatinine 0.9, BUN of 18. Lactic acid 1.7. Liver function studies were normal. Lipase was normal. PAST MEDICAL HISTORY: She has had coronary artery disease with previous bypass surgery in 1999. 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 She has had degenerative joint disease and spinal stenosis. She has reflux disease and Stroud esophagus is noted. She has migraine headaches, she has chronic pain, high blood pressure, spinal stenosis, chronic anxiety and depression. 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 She also has problems with chronic constipation. She has had Mohs surgery on her lip for neoplastic disease. She has had breast implants x 3, and also hysterectomy. She has had bilateral knee replacement. ALLERGIES: She says she has nausea from CODEINE. Her mother told her, she was allergic to penicillin and she is uncertain about that allergy. USUAL HOME MEDICATIONS: Polyethylene glycol 17 grams as needed, hydrocodone 7/325 and she uses daily, indapamide 2.5 mg daily, Flexeril 5 mg as needed, temazepam 30 mg at bedtime, alprazolam 2 mg as needed, pantoprazole 20 mg daily, atorvastatin 20 mg daily, Depo-Estradiol IM monthly, lisinopril 20 mg daily, balsalazide 750 mg 2 twice daily. FAMILY HISTORY: A cousin had colon cancer, another cousin may have had colitis and has a colostomy. SOCIAL HISTORY: . Former smoker, quit many years ago. She does not drink much alcohol. She does smoke marijuana. REVIEW OF SYSTEMS: GENERAL: No change in weight, fever or chills, but she did feel cold last [facility] [address] [facility] [place] [address] CONSULTATION Name: SHAWN SHAFFER [facility] M.R.[facility] [id number] Admission: 07/22/18 Attend Phys: Lorraine Ramires MD Discharge: Date of : 47 Report #: [id number] night. CENTRAL NERVOUS SYSTEM: No focal weakness, numbness, loss of consciousness, seizure, strokes. HEENT: She had recent cataract surgery and she believes she is hard of hearing. PULMONARY: Former cigarette smoker. No pneumonia or tuberculosis. CARDIOVASCULAR: Bypass surgery without recent chest pain or chest tightness. She has had mesenteric vascular disease. GENITOURINARY: Without dysuria or pyuria. She has had urinary tract infection in the past. GYNECOLOGIC: Previous hysterectomy and lymphoma breast and breast implants x 3. MUSCULOSKELETAL: Spinal stenosis, degenerative joint disease with knee replacements. SKIN: Mohs surgery on her lip for neoplasm. PSYCHIATRIC: Depression and anxiety. ENDOCRINE: Not aware of diabetes or thyroid problems. HEMATOLOGIC: No bleeding, bruising or malignancies. PHYSICAL EXAMINATION: GENERAL: The patient is a well-developed, well-nourished, pleasant woman who is awake, alert and oriented, in no acute distress. VITAL SIGNS: Blood pressure 124/65. HEENT: Anicteric. Pupils equal and round. Oropharynx clear. NECK: Supple. CHEST: Clear. HEART: Regular rate and rhythm, normal S1 and S2. ABDOMEN: Normal bowel sounds, soft, modest tenderness to palpation in the left lower quadrant. RECTAL: Not done. EXTREMITIES: Without cyanosis, clubbing or edema. NEUROLOGIC: Oriented to person, place, and time. Moves all 4 extremities well. ASSESSMENT: 1. Rectal bleeding, suspect ischemia once again, abnormalities noted on CT. 2. Nausea and vomiting, likely related to her acute event. 3. Abnormal stomach with thickening noted on CT, recent endoscopy within the past year. 4. Chronic reflux disease. 5. Stroud esophagus. 6. Coronary artery disease. 7. Degenerative joint disease. 8. History of lymphoma. RECOMMENDATIONS: 1. Await CT angio, which has been ordered. 2. Based on previous difficulties, I am not sure stent is feasible in this patient. If she has recurrent ischemia, which cannot be stented, [facility] [address] [place] [address] CONSULTATION Name: SHAWN SHAFFER Room #: 364-P [facility] IN ..#: [id number] Admission: 07/22/18 Attend Phys: Lorraine Ramires MD Discharge: Date of : 47 Report #: [id number] resection may be needed. 3. Clear liquids. 4. Empiric antibiotic. 5. Continue proton pump inhibitor. <ELECTRONICALLY SIGNED> By: Jason Venegas MD 07/23/18 1030 1533 1832 Jason Venegas MD /nt
[~2018-07-21 23:21] MED LIST changes: -HYDROCODONE-APA1 TA1 PO; +NORCO 7.5-3251 EACH PO
[2018-07-21 23:22] VITALS: BP 149/49
[2018-07-22 00:28] LABS: HEMATOCRIT 49.4 % (37.0-47.0); HEMOGLOBIN 16.7 gm/dL (12.0-15.0); MCH 31.1 pg (26.0-34.0); MCHC 33.8 g/dL (28.0-37.0); MCV 92.2 fL (80.0-100.0); PLATELET COUNT 220 thou/uL (150-400); RBC 5.36 mil/uL (4.20-5.00); WBC 22.8 thou/uL (4.0-11.0)
[2018-07-22 00:31] LABS: CALCIUM 9.9 mg/dL (8.5-10.1); CREATININE 1.1 mg/dL (0.6-1.0); POTASSIUM 3.8 mmol/L (3.5-5.1)
[2018-07-22 00:37] LABS: ALBUMIN 4.6 g/dL (3.4-5.0); TOTAL BILIRUBIN 0.7 mg/dL (<0.1-1.0)
[2018-07-22 00:57] LABS: ABSOLUTE NEUTROPHILS 20.5 thou/uL (1.4-8.2)
[2018-07-22 00:58] LABS: PLATELET ESTIMATE NORMAL
[2018-07-22 03:20] VITALS: BP 151/88
[2018-07-22 05:59] LABS: HEMATOCRIT 40.4 % (37.0-47.0); MCH 30.2 pg (26.0-34.0); MCHC 32.4 g/dL (28.0-37.0); MCV 93.4 fL (80.0-100.0); RBC 4.33 mil/uL (4.20-5.00); RDW 13.9 % (10.5-14.5); WBC 22.1 thou/uL (4.0-11.0)
[2018-07-22 06:02] LABS: HEMOGLOBIN 13.1 gm/dL (12.0-15.0)
[2018-07-22 07:03] LABS: CALCIUM 8.7 mg/dL (8.5-10.1); CREATININE 0.9 mg/dL (0.6-1.0); POTASSIUM 3.6 mmol/L (3.5-5.1)
[2018-07-22 07:44] VITALS: BP 123/55
[2018-07-22 11:55] VITALS: BP 124/65
[2018-07-22 16:59] VITALS: BP 142/66
[2018-07-22 19:35] VITALS: BP 134/64
[2018-07-22 23:22] VITALS: BP 140/69
[2018-07-23 04:19] VITALS: BP 130/56
[2018-07-23 06:53] LABS: BASOPHILS 0.2 % (0.0-2.0); EOSINOPHILS 0.7 % (0.0-3.0); HEMATOCRIT 35.2 % (37.0-47.0); HEMOGLOBIN 11.6 gm/dL (12.0-15.0); LYMPHOCYTES 6.6 % (24.0-44.0); MCH 30.8 pg (26.0-34.0); MCHC 33.1 g/dL (28.0-37.0); MCV 92.8 fL (80.0-100.0); PLATELET COUNT 208 thou/uL (150-400); POLYS 83.5 % (36.0-66.0); RBC 3.79 mil/uL (4.20-5.00); RDW 13.9 % (10.5-14.5); WBC 10.7 thou/uL (4.0-11.0)
[2018-07-23 06:58] LABS: CALCIUM 8.1 mg/dL (8.5-10.1); CREATININE 0.7 mg/dL (0.6-1.0)
[2018-07-23 08:08] VITALS: BP 132/29
[2018-07-23 11:55] VITALS: BP 146/50
[2018-07-23 16:00] VITALS: BP 137/57
[2018-07-23 22:17] VITALS: BP 144/71
[2018-07-24 03:42] VITALS: BP 139/60
[2018-07-24 06:27] LABS: HEMATOCRIT 34.2 % (37.0-47.0); HEMOGLOBIN 11.5 gm/dL (12.0-15.0); MCH 31.2 pg (26.0-34.0); MCHC 33.7 g/dL (28.0-37.0); MCV 92.4 fL (80.0-100.0); RBC 3.7 mil/uL (4.20-5.00); RDW 14.1 % (10.5-14.5); WBC 10.2 thou/uL (4.0-11.0)
[2018-07-24 06:44] LABS: CREATININE 0.7 mg/dL (0.6-1.0); MAGNESIUM 1.3 mg/dL (1.8-2.4); POTASSIUM 3.3 mmol/L (3.5-5.1)
[2018-07-24 08:12] VITALS: BP 161/78
[2018-07-24 12:12] VITALS: BP 138/74
[2018-07-24 16:40] VITALS: BP 148/83
[2018-07-24 20:45] VITALS: BP 164/80
[2018-07-25] VITALS (7 sets, daily range): BP systolic 119–167; BP diastolic 68–86
[2018-07-25 05:54] LABS: CALCIUM 8.2 mg/dL (8.5-10.1); CREATININE 0.7 mg/dL (0.6-1.0); MAGNESIUM 1.5 mg/dL (1.8-2.4); POTASSIUM 3.8 mmol/L (3.5-5.1)
[2018-07-26 08:09] VITALS: BP 144/84
[2018-07-26 20:00] VITALS: BP 184/92
[2018-07-27] MEDS ORDERED: CIPRO500 MG PO (11:47)
[2018-07-27] MEDS ORDERED: FLAGYL 250 MG250 MG PO (11:48)
[2018-07-27] MEDS ORDERED: ONDANSETRON HCL4 M2 PO (11:49)
[2018-07-27 13:15] VITALS: BP 184/103
== END 2018-07-27 15:14 | disposition home or self-care (01) | DRG 871 ==
LOC: ER 23:21 → 3W 07-22 02:13 → EROBS 07-22 02:13 → 3W 07-22 03:10 → SICU 07-25 17:12 → ENTRNSPT 07-27 14:39 → EDTRNSPTSTS 07-27 14:40 → SICU 07-27 15:14
PROVIDERS: Emergency Medicine; Hospitalist; Internal Medicine; Nurse Practitioner Family
PROC: 05HY33Z Insertion of Infusion Device into Upper Vein, Percutaneous Approach (ICD-10-PCS; principal; 2018-07-26)
PROC: 0DBN8ZX Excision of Sigmoid Colon, Via Natural or Artificial Opening Endoscopic, Diagnostic (ICD-10-PCS; 2018-07-26)
DX: A41.9 Sepsis, unspecified organism (principal); E43 Unspecified severe protein-calorie malnutrition; K57.31 Diverticulosis of large intestine without perforation or abscess with bleeding; K55.9 Vascular disorder of intestine, unspecified; K51.90 Ulcerative colitis, unspecified, without complications; Z68.1 Body mass index [BMI] 19.9 or less, adult; Z98.82 Breast implant status; Z96.653 Presence of artificial knee joint, bilateral; G43.909 Migraine, unspecified, not intractable, without status migrainosus; I25.10 Atherosclerotic heart disease of native coronary artery without angina pectoris; I10 Essential (primary) hypertension; F32.9 Major depressive disorder, single episode, unspecified; K21.9 Gastro-esophageal reflux disease without esophagitis; E78.00 Pure hypercholesterolemia, unspecified; F41.1 Generalized anxiety disorder; F12.90 Cannabis use, unspecified, uncomplicated; K22.70 Barrett's esophagus without dysplasia; M19.90 Unspecified osteoarthritis, unspecified site; E78.5 Hyperlipidemia, unspecified; G89.4 Chronic pain syndrome; G47.00 Insomnia, unspecified; E83.42 Hypomagnesemia; Z95.1 Presence of aortocoronary bypass graft; Z88.6 Allergy status to analgesic agent; Z88.0 Allergy status to penicillin; Z80.0 Family history of malignant neoplasm of digestive organs; Z87.891 Personal history of nicotine dependence; Z79.899 Other long term (current) drug therapy
CPT/HCPCS: 10879; 15002; 27000; 62110; 62900; 70005

== ENCOUNTER → 2019-12-19 | Outpatient (CLI) | payer OTHER, MEDICARE ==
[~2019-12-19] MED LIST changes: +CIPRO500 MG PO; +FLAGYL 250 MG250 MG PO; +ONDANSETRON HCL4 M2 PO
== END ==
LOC: SJCVCIMAG 14:03
DX: R00.0 Tachycardia, unspecified (principal); I25.10 Atherosclerotic heart disease of native coronary artery without angina pectoris; Z79.899 Other long term (current) drug therapy

== ENCOUNTER → 2020-11-14 | Outpatient (CLI) | payer OTHER, MEDICARE | LOC: SJCVC 16:08 | PROVIDERS: ATTEND Internal Medicine Cardiovascular Disease | DX: I25.10 Atherosclerotic heart disease of native coronary artery without angina pectoris (principal); I10 Essential (primary) hypertension; E78.00 Pure hypercholesterolemia, unspecified; I77.9 Disorder of arteries and arterioles, unspecified; E78.5 Hyperlipidemia, unspecified; F12.90 Cannabis use, unspecified, uncomplicated; F41.9 Anxiety disorder, unspecified; Z79.899 Other long term (current) drug therapy; Z72.89 Other problems related to lifestyle; Z95.3 Presence of xenogenic heart valve; Z88.1 Allergy status to other antibiotic agents; Z88.5 Allergy status to narcotic agent; Z88.0 Allergy status to penicillin; Z88.8 Allergy status to other drugs, medicaments and biological substances ==

== ENCOUNTER → 2021-07-30 | Emergency (ER) | payer OTHER, MEDICARE ==
[2021-07-30 15:16] VITALS: BP 113/84
== END ==
LOC: ER 15:14
DX: R05.9 Cough, unspecified (principal); R55 Syncope and collapse; R11.2 Nausea with vomiting, unspecified; Z95.1 Presence of aortocoronary bypass graft; G43.909 Migraine, unspecified, not intractable, without status migrainosus; I25.10 Atherosclerotic heart disease of native coronary artery without angina pectoris; F41.9 Anxiety disorder, unspecified; I10 Essential (primary) hypertension; F32.9 Major depressive disorder, single episode, unspecified; E78.00 Pure hypercholesterolemia, unspecified; K21.9 Gastro-esophageal reflux disease without esophagitis; Z53.21 Procedure and treatment not carried out due to patient leaving prior to being seen by health care provider; Z98.890 Other specified postprocedural states; Z88.5 Allergy status to narcotic agent; Z88.1 Allergy status to other antibiotic agents